=== PATIENT | male | born 1970 | race Caucasian/White ===

== ENCOUNTER 2024-10-22 17:30 | Emergency (ER) | payer OTHER ==
[~2024-10-22] VITALS: Ht 175.3 cm; Wt 72.6 kg
[2024-10-22] MEDS ORDERED: THIAMINE HCL 200 MG/2 ML VIAL ONE (17:46)
[2024-10-22] MEDS ORDERED: LORAZEPAM 2 MG/1 ML VIAL ONE (17:47)
[2024-10-22] MEDS: IV NORMAL SALINE 1000 ML BAG IV ONE (17:52)
[2024-10-22] MEDS: THIAMINE HCL 200 MG/2 ML VIAL IV ONE (17:52)
[2024-10-22] MEDS: LORAZEPAM 2 MG/1 ML VIAL IV ONE (17:52)
[2024-10-22 17:53] LABS: BASOPHILS # (AUTO) 0.2 K/UL (0.0-0.2); BASOPHILS % (AUTO) 2.7 % (0.0-2.0); EOSINOPHILS # (AUTO) 0.1 K/uL (0.0-0.7); EOSINOPHILS % (AUTO) 1.1 % (0.0-7.0); HEMATOCRIT 38.3 % (36.7-47.1); HEMOGLOBIN 13.5 g/dL (12.5-16.3); LYMPHOCYTES # (AUTO) 2.8 K/uL (0.8-4.8); LYMPHOCYTES % (AUTO) 32.8 % (20.5-51.5); MEAN CORPUSCULAR HEMOGLOBIN 34.5 uug (23.8-33.4); MEAN CORPUSCULAR HGB CONC 35 g/dL (32.5-36.3); MEAN CORPUSCULAR VOLUME 97.9 fL (73.0-96.2); MONOCYTES # (AUTO) 0.8 K/uL (0.1-1.30); MONOCYTES % (AUTO) 9.2 % (0.0-11.0); NEUTROPHILS # (AUTO) 4.6 K/uL (1.8-8.9); NEUTROPHILS % (AUTO) 54.2 % (38.5-71.5); PLATELET COUNT (AUTO) 131 K/uL (152-348); RED BLOOD CELL COUNT(AUTO) 3.92 MIL/uL (4.06-5.63); RED CELL DISTRIBUTION WIDTH 13.7 % (12.1-16.2); WHITE BLOOD COUNT (AUTO) 8.4 K/uL (3.6-10.2)
[2024-10-22 18:06] LABS: DIFFERENTIAL COMMENT 1
[2024-10-22 18:11] LABS: CALCIUM 8.6 mg/dL (8.5-10.1); POTASSIUM 3.8 mmol/L (3.5-5.1)
[2024-10-22 18:17] LABS: ALBUMIN 3.4 g/dL (3.4-5.0); BILIRUBIN,DIRECT 0.3 mg/dL (0.0-0.2); TOTAL PROTEIN, SERUM 7.4 g/dL (6.4-8.2)
[2024-10-22] MEDS ORDERED: CHLO25CA22 PO (18:33)
[2024-10-23 00:35] VITALS: O2SAT 96
== END 2024-10-23 00:55 | disposition short-term general hospital (02) ==
LOC: ER 17:30
DX: F10.129 Alcohol abuse with intoxication, unspecified (principal); F10.139 Alcohol abuse with withdrawal, unspecified; Y90.8 Blood alcohol level of 240 mg/100 ml or more
CPT/HCPCS: 80076; 80048; 83735; 85025; 85610; 36415; 99285; 96361; 96374; 96375; 80320; J2060; J3411; J7040; A4606; A4663; G0480